=== PATIENT | female | born 1990 ===

== ENCOUNTER 2022-05-30 09:47 | Outpatient (CLI) | payer OTHER | END 2022-05-30 10:50 | disposition home or self-care (01) | LOC: PRENATAL 09:47 | PROVIDERS: ATTEND Obstetrics & Gynecology Maternal & Fetal Medicine | DX: O35.0XX0 Maternal care for (suspected) central nervous system malformation in fetus, not applicable or unspecified (principal); O35.3XX0 Maternal care for (suspected) damage to fetus from viral disease in mother, not applicable or unspecified; Z91.013 Allergy to seafood; Z3A.26 26 weeks gestation of pregnancy ==